=== PATIENT | female | born 1960 | race Two or more races ===

== ENCOUNTER 2018-05-02 19:39 | Inpatient (IN) | payer MEDICAID ==
--- NOTE | 2018-05-02 19:54 | EDPHY ---
HPI/HX/ROS/PE/MDM Narrative: CHIEF COMPLAINT: Chest pain HISTORY OF PRESENT ILLNESS: The patient is a 57 y/o female with a history of diabetes, hypertension, cholecystectomy arriving via EMS complaining of left-sided chest pain starting from her back and radiating to the front. When this pain started she broke out into a sweat and felt like her stomach was moving around. While en route to the emergency department she was given 4 baby Aspirin and Zofran. She felt like she was having heart palpitations as well. In addition to her chest pain she also is feeling short of breath, weak, dizzy, and was vomiting. Currently she is feeling a pressure in her chest and nausea. No fever, chills, diarrhea, urinary complaints, headache, lightheadedness. A thread drawer was present while talking with the patient. REVIEW OF SYSTEMS: Aside from elements discussed in the HPI, a comprehensive 10 system review of systems was reviewed and is negative. PAST MEDICAL HISTORY: Diabetes, hypertension, sleep apnea, cholecystectomy SOCIAL HISTORY: Lives in [place], employed at [employer] VITAL SIGNS: Reviewed by me GENERAL: Overweight individual, anxious, appears uncomfortable. HEENT: Atraumatic. Eyes: No icterus, no injection. Mouth: moist mucous membranes. No erythema or lesions. Neck: supple with no adenopathy. LUNGS: Clear to auscultation bilaterally, no wheezes, rhonchi or rales. CARDIAC: Tenderness to palpation across anterior chest; no subcutaneous emphysema palpated. Tenderness left greater than right. Irregular rate, no rubs , murmurs or gallops. ABDOMEN: Soft, nontender, nondistended, bowel sounds normal. BACK: No CVA tenderness. EXTREMITIES: No trauma. Trace pitting edema. Range of motion is normal throughout. NEURO: Alert and oriented, grossly nonfocal. SKIN: Warm and dry, no rash. PSYCHIATRIC: Normal mentation, no agitation. Portions of this note were transcribed by a medical claims processor. I personally performed a history, physical exam, medical decision making, and confirmed accuracy of information the transcribed note. ED Course: The patient is a 57 y/o female with a history of diabetes, hypertension, cholecystectomy arriving via EMS presenting with left-sided chest pain starting from her back and radiating to the front associated with vomiting, shortness of breath, and feeling weak. On exam she has tenderness across her anterior chest; left greater than right. She also has trace pitting edema. Chest x-ray, EKG, and labs ordered. 4mg IV Morphine, 1 nitroglycerin, and 500mL IV NS administered. 1944: 12-LEAD EKG: Please see the full report in Trace Master. My interpretation: Ectopic atrial rhythm with a rat of 61, T-wave inversion 1955: Patient's chest x-ray reveals mild cardiac enlargement. She does have an elevated d-dimer. Chest CTA ordered, however, the patient reports a significant allergy to IV contrast which resulted in a fainting episode when she had IV contrast at [facility]. We will premedicate the patient and attempt to obtain further information regarding this potential allergic reaction. 2045: The patient's pain has improved after Morphine. 2110: I consulted with the hospitalist service, Dr. Galarza accepts admission of this patient. 2129: Reassessed patient and discussed laboratory and imaging findings. I have also discussed the plan for admission, which she is comfortable with. 125mg IV Solu-Medrol and 25mg IV Benadryl administered so patient can have a CTA preformed as she states she is allergic to the IV contrast. 2155: Repeat 12-LEAD EKG: Please see the full report in Trace Master. My interpretation: Sinus bradycardia with a rte of 46, atrial premature complexes in couplets, LVH with secondary repolarization abnormality CT scan for pulmonary emboli pending at the time of this dictation. MDM: After history and physical examination, the differential for chest pain was considered, including but not limited to, myocardial ischemia, acute coronary syndrome, pulmonary embolus, chest wall pain, pleural inflammation, abdominal causes, and pulmonary infectious causes. - Data Points Imaging Results: Imaging Impressions Chest X-Ray 05/02/18 19:56 Impression: Moderate cardiac enlargement. Imaging: Discussed imaging studies w/ velvet weaver Radiologist, I viewed and interpreted images myself Laboratory Results: Laboratory Results 05/02/18 19:41 05/02/18 19:41 05/02/18 05/02/18 05/02/18 19:49 19:41 19:41 WBC RBC Hgb Hct MCV MCH MCHC RDW Plt Count MPV Neut % (Auto) Lymph % (Auto) Toole % (Auto) Eos % (Auto) Baso % (Auto) Nucleat RBC Rel Count Absolute Neuts (auto) Absolute Lymphs (auto) Absolute Monos (auto) Absolute Eos (auto) Absolute Basos (auto) Absolute Nucleated RBC Immature Gran % Immature Gran # D-Dimer 2.02 ug/mLFEU H ug/mLFEU (0.00-0.50) Sodium 139 mEq/L mEq/L (135-145) Potassium 3.8 mEq/L mEq/L (3.3-5.0) Chloride 98 mEq/L mEq/L (97-110) Carbon Dioxide 25 mEq/l mEq/l (22-31) Anion Gap 16 mEq/L mEq/L (8-16) BUN 19 mg/dL mg/dL (7-23) Creatinine 0.9 mg/dL mg/dL (0.6-1.0) Estimated GFR > 60 Glucose 124 mg/dL H mg/dL (70-100) Calcium 10.4 mg/dL mg/dL (8.5-10.4) Total Bilirubin 0.5 mg/dL mg/dL (0.1-1.4) Conjugated Bilirubin 0.2 mg/dL mg/dL (0.0-0.5) Unconjugated Bilirubin 0.3 mg/dL mg/dL (0.0-1.1) AST 35 IU/L IU/L (14-46) ALT 44 IU/L IU/L (9-52) Alkaline Phosphatase 146 IU/L H IU/L (38-126) Creatine Kinase 183 IU/L H IU/L (0-156) CK-MB (CK-2) Fraction 2.53 ng/mL ng/mL (0.00-4.55) CK-MB (CK-2) % 1.4 % % (0.0-4.0) Creatine Kinase Interp NEGATIVE (NEGATIVE) POC Troponin I 0.00 ng/mL ng/mL (0.00-0.08) Troponin I 0.023 ng/mL ng/mL (0.000-0.034) Total Protein 8.2 g/dL g/dL (6.3-8.2) Albumin 5.0 g/dL g/dL (3.5-5.0) Lipase 164 IU/L IU/L (23-300) 05/02/18 19:41 WBC 13.96 10^3/uL H 10^3/uL (3.80-9.50) RBC 4.93 10^6/uL 10^6/uL (4.18-5.33) Hgb 14.5 g/dL g/dL (12.6-16.3) Hct 43.3 % % (38.0-47.0) MCV 87.8 fL fL (81.5-99.8) MCH 29.4 pg pg (27.9-34.1) MCHC 33.5 g/dL g/dL (32.4-36.7) RDW 13.8 % % (11.5-15.2) Plt Count 238 10^3/uL 10^3/uL (150-400) MPV 8.4 fL L fL (8.7-11.7) Neut % (Auto) 73.5 % % (39.3-74.2) Lymph % (Auto) 20.9 % % (15.0-45.0) Toole % (Auto) 4.1 % L % (4.5-13.0) Eos % (Auto) 0.8 % % (0.6-7.6) Baso % (Auto) 0.3 % % (0.3-1.7) Nucleat RBC Rel Count 0.0 % % (0.0-0.2) Absolute Neuts (auto) 10.26 10^3/uL H 10^3/uL (1.70-6.50) Absolute Lymphs (auto) 2.92 10^3/uL 10^3/uL (1.00-3.00) Absolute Monos (auto) 0.57 10^3/uL 10^3/uL (0.30-0.80) Absolute Eos (auto) 0.11 10^3/uL 10^3/uL (0.03-0.40) Absolute Basos (auto) 0.04 10^3/uL 10^3/uL (0.02-0.10) Absolute Nucleated RBC 0.00 10^3/uL 10^3/uL (0-0.01) Immature Gran % 0.4 % % (0.0-1.1) Immature Gran # 0.06 10^3/uL 10^3/uL (0.00-0.10) D-Dimer Sodium Potassium Chloride Carbon Dioxide Anion Gap BUN Creatinine Estimated GFR Glucose Calcium Total Bilirubin Conjugated Bilirubin Unconjugated Bilirubin AST ALT Alkaline Phosphatase Creatine Kinase CK-MB (CK-2) Fraction CK-MB (CK-2) % Creatine Kinase Interp POC Troponin I Troponin I Total Protein Albumin Lipase Medications Given: Nitroglycerin (Nitrostat) 0.4 mg SL EDNOW PRN PRN Reason: Chest Pain Last Admin: 05/02/18 21:16 Dose: 0.4 mg Discontinued Medications Diphenhydramine HCl (Benadryl Injection) 25 mg IVP EDNOW ONE Stop: 05/02/18 21:22 Last Admin: 05/02/18 22:05 Dose: 25 mg Sodium Chloride (Ns) 500 mls @ 0 mls/hr IV ONCE ONE PRN Reason: Wide Open Stop: 05/02/18 20:10 Last Admin: 05/02/18 20:10 Dose: 500 mls Methylprednisolone Sodium Succinate (Solu-Medrol) 125 mg IVP EDNOW ONE Stop: 05/02/18 21:22 Last Admin: 05/02/18 22:05 Dose: 125 mg Morphine Sulfate (Morphine) 4 mg IVP EDNOW ONE Stop: 05/02/18 20:09 Last Admin: 05/02/18 20:10 Dose: 4 mg Point of Care Test Results: Chemistry 05/02/18 19:49 POC Troponin I 0.00 ng/mL ng/mL (0.00-0.08) General Time Seen by Provider: 05/02/18 19:49 Initial Vital Signs: Initial Vital Signs Temperature (C) 36.4 C 05/02/18 19:45 Heart Rate 61 05/02/18 19:45 Respiratory Rate 18 05/02/18 19:45 Blood Pressure 133/86 H 05/02/18 19:45 O2 Sat (%) 93 05/02/18 19:45 O2 Delivery Mode Nasal Cannula O2 (L/minute) 2 Allergies/Adverse Reactions: No Known Allergies Allergy (Unverified 05/02/18 19:48) Home Medications: Medication Instructions Recorded Lisinopril 05/02/18 Departure - Departure Disposition: [facility] Acute Clinical Impression: D-dimer, elevated, Shortness of breath Chest pain Qualifiers: Chest pain type: other chest pain Qualified Code(s): R07.89 - Other chest pain Condition: Fair Report Scribed for: Niurka Pan Report Scribed by: Nelida Rojas Date of Report: 05/02/18 Time of Report: 20:04
[2018-05-02 20:09] LABS: PLATELET COUNT 238 10^3/uL (150-400)
[2018-05-02] MEDS ORDERED: NS 500 ML IV ONE (20:09)
[2018-05-02 20:15] LABS: CREATINE KINASE 183 IU/L (0-156)
[2018-05-02] MEDS: NITROGLYCERIN 0.4 MG BTL SL PRN ×2 (20:28→21:16)
[2018-05-02] MEDS ORDERED: IOPAMIDOL (ISOVUE 370) 100 ML BTL IV ONE (20:50)
[2018-05-02] MEDS ORDERED: methylPREDNISolone SOD SUCC 125 MG/2 ML VIAL IVP ONE (21:21)
[2018-05-02] MEDS ORDERED: ONDANSETRON DISINTEGRATING 4 MG TAB PO PRN (22:36)
[2018-05-02] MEDS ORDERED: ACETAMINOPHEN 325 MG TAB PO PRN (22:36)
[2018-05-02] MEDS ORDERED: ONDANSETRON 4 MG/2 ML VIAL IVP PRN (22:36)
[2018-05-02] MEDS ORDERED: D50W 25 GM/50 ML VIAL IVP PRN (22:38)
--- NOTE | 2018-05-03 00:02 | CPEKG ---
Test Reason : OPEN Blood Pressure : / mmHG Vent. Rate : 061 BPM Atrial Rate : 061 BPM P-R Int : 117 ms QRS Dur : 087 ms QT Int : 414 ms P-R-T Axes : 000 -08 202 degrees QTc Int : 417 ms Atrial vs junctional rhythm LVH with secondary repolarization abnormality Confirmed by Niurka Pan ([id number]) on 05/03/2018 12:02:12 AM Referred By: Confirmed By:Niurka Pan
--- NOTE | 2018-05-03 00:04 | CPEKG ---
Test Reason : OPEN Blood Pressure : / mmHG Vent. Rate : 046 BPM Atrial Rate : 067 BPM P-R Int : 162 ms QRS Dur : 092 ms QT Int : 507 ms P-R-T Axes : 009 -11 -38 degrees QTc Int : 444 ms Sinus bradycardia Atrial premature complexes in couplets LVH with secondary repolarization abnormality Confirmed by Niurka Pan ([id number]) on 05/03/2018 12:04:13 AM Referred By: Confirmed By:Niurka Pan
--- NOTE | 2018-05-03 01:14 | PDGENHP ---
History and Physical - Chief Complaint Chest pain - History of Present Illness 57 yo F w/ DM and HTN presents after episode of chest pain. Patient was eating today when she developed chest pain on her left side radiation to her back. She also felt dizzy and nauseous. She vomited and then had syncopal episode. After this she felt cold, short of breath, and continued to have chest pain. She then came to the ED for evaluation. She has no prior history of coronary disease but she does have DM and HTN. She tells me that sometimes when she drinks coffee she feels burning down the middle of her chest. At the time of my evaluation patient is feeling improved with only mild discomfort. In the ED her troponin was negative. Her ECG reveals relative bradycardia with diffuse TWI's. Her D-dimer was elevated. Case discussed with ED physician Dr. Pan; records reviewed in EMR. History Information - Allergies/Home Medication List Allergies/Adverse Reactions: No Known Allergies Allergy (Unverified 05/02/18 19:48) Home Medications: Lisinopril 05/02/18 [Last Taken Unknown] I have personally reviewed and updated: family history, medical history - Past Medical History diabetes type 2, hypertension - Surgical History Reports: cholecystectomy - Family History Additional family history: Healthy adult son in the room - Social History Smoking Status: Never smoked Review of Systems Review of Systems: ROS: 10pt was reviewed & negative except for what was stated in HPI & below Physical Exam Physical Exam: Temp Pulse Resp BP Pulse Ox 36.9 C 65 20 135/77 H 96 05/02/18 23:13 05/02/18 23:13 05/02/18 23:13 05/02/18 23:13 05/02/18 23:13 O2 (L/minute) 2 Constitutional: appears nourished, uncomfortable Eyes: PERRL, EOMI Ears, Nose, Mouth, Throat: moist mucous membranes, no oral mucosal ulcers Cardiovascular: regular rate and rhythym, no murmur, rub, or gallop, other ( Chest wall tenderness upon palpation of L chest) Respiratory: no respiratory distress, clear to auscultation Gastrointestinal: normoactive bowel sounds, soft, non-tender abdomen Skin: warm, normal color Musculoskeletal: full muscle strength, no muscle tenderness Neurologic: AAOx3, CN II-XII Intact Psychiatric: interacting appropriately, not anxious Lab Data & Imaging Review 05/02/18 19:41 05/02/18 19:41 WBC 13.96 10^3/uL (3.80-9.50) H 05/02/18 19:41 RBC 4.93 10^6/uL (4.18-5.33) 05/02/18 19:41 Hgb 14.5 g/dL (12.6-16.3) 05/02/18 19:41 Hct 43.3 % (38.0-47.0) 05/02/18 19:41 MCV 87.8 fL (81.5-99.8) 05/02/18 19:41 MCH 29.4 pg (27.9-34.1) 05/02/18 19:41 MCHC 33.5 g/dL (32.4-36.7) 05/02/18 19:41 RDW 13.8 % (11.5-15.2) 05/02/18 19:41 Plt Count 238 10^3/uL (150-400) 05/02/18 19:41 MPV 8.4 fL (8.7-11.7) L 05/02/18 19:41 Neut % (Auto) 73.5 % (39.3-74.2) 05/02/18 19:41 Lymph % (Auto) 20.9 % (15.0-45.0) 05/02/18 19:41 [place] % (Auto) 4.1 % (4.5-13.0) L 05/02/18 19:41 Eos % (Auto) 0.8 % (0.6-7.6) 05/02/18 19:41 Baso % (Auto) 0.3 % (0.3-1.7) 05/02/18 19:41 Nucleat RBC Rel Count 0.0 % (0.0-0.2) 05/02/18 19:41 Absolute Neuts (auto) 10.26 10^3/uL (1.70-6.50) H 05/02/18 19:41 Absolute Lymphs (auto) 2.92 10^3/uL (1.00-3.00) 05/02/18 19:41 Absolute Monos (auto) 0.57 10^3/uL (0.30-0.80) 05/02/18 19:41 Absolute Eos (auto) 0.11 10^3/uL (0.03-0.40) 05/02/18 19:41 Absolute Basos (auto) 0.04 10^3/uL (0.02-0.10) 05/02/18 19:41 Absolute Nucleated RBC 0.00 10^3/uL (0-0.01) 05/02/18 19:41 Immature Gran % 0.4 % (0.0-1.1) 05/02/18 19:41 Immature Gran # 0.06 10^3/uL (0.00-0.10) 05/02/18 19:41 D-Dimer 2.02 ug/mLFEU (0.00-0.50) H 05/02/18 19:41 Sodium 139 mEq/L (135-145) 05/02/18 19:41 Potassium 3.8 mEq/L (3.3-5.0) 05/02/18 19:41 Chloride 98 mEq/L (97-110) 05/02/18 19:41 Carbon Dioxide 25 mEq/l (22-31) 05/02/18 19:41 Anion Gap 16 mEq/L (8-16) 05/02/18 19:41 BUN 19 mg/dL (7-23) 05/02/18 19:41 Creatinine 0.9 mg/dL (0.6-1.0) 05/02/18 19:41 Estimated GFR > 60 05/02/18 19:41 Glucose 124 mg/dL (70-100) H 05/02/18 19:41 Calcium 10.4 mg/dL (8.5-10.4) 05/02/18 19:41 Total Bilirubin 0.5 mg/dL (0.1-1.4) 05/02/18 19:41 Conjugated Bilirubin 0.2 mg/dL (0.0-0.5) 05/02/18 19:41 Unconjugated Bilirubin 0.3 mg/dL (0.0-1.1) 05/02/18 19:41 AST 35 IU/L (14-46) 05/02/18 19:41 ALT 44 IU/L (9-52) 05/02/18 19:41 Alkaline Phosphatase 146 IU/L (38-126) H 05/02/18 19:41 Creatine Kinase 183 IU/L (0-156) H 05/02/18 19:41 CK-MB (CK-2) Fraction 2.53 ng/mL (0.00-4.55) 05/02/18 19:41 CK-MB (CK-2) % 1.4 % (0.0-4.0) 05/02/18 19:41 Creatine Kinase Interp NEGATIVE (NEGATIVE) 05/02/18 19:41 POC Troponin I 0.00 ng/mL (0.00-0.08) 05/02/18 19:49 Troponin I 0.023 ng/mL (0.000-0.034) 05/02/18 19:41 Total Protein 8.2 g/dL (6.3-8.2) 05/02/18 19:41 Albumin 5.0 g/dL (3.5-5.0) 05/02/18 19:41 Lipase 164 IU/L (23-300) 05/02/18 19:41 Imaging Review: Imaging Impressions Chest X-Ray 05/02/18 19:56 Impression: Moderate cardiac enlargement. Chest/Thorax CTA 05/02/18 20:40 Impression: Negative CT examination of the chest for acute pulmonary thromboembolic disease. Results called to Dr. Payton Quiles at midnight at the time of the interpretation. Visualized and Interpreted EKG results: Yes EKG Interpretation: Positive for: other (HR 46, Diffuse TWI's) Assessment & Plan Assessment: 57 yo F w/ DM and HTN presents after episode of chest pain. Plan: 1. Chest pain - Pain developed while eating, radiated to back, and was associated with dizziness, SOB, and vomiting. Pain is pleuritic and somewhat reproducible on my exam. D-dimer was elevated but CTA negative for PE, pneumothorax, or dissection. ECG (personally interpreted) notable for diffuse T wave inversions without prior available for comparison. HEART score of 5 indicating need for further observation. She does have a small hiatal hernia on imaging but it seems unlikely this would produce such dramatic symptoms. - Admit to PCU for observation - Monitor on telemetry, trend cardiac enzymes - Proceed per chest pain protocol pending above 2. Syncope - I suspect vasovagal etiology noting severe pain and nausea/ vomiting. It is unclear whether there was true LOC. CTA negative for PE. - ACS work-up as above - Will also obtain TTE noting cardiomegaly on CXR and abnormal ECG 3. NIDDM - On metformin only as outpatient. - Will manage with insulin lispro standard SSI while inpatient - Monitor BG ACHS, D50 PRN for hypoglycemia 4. HTN - Continue home medications pending reconciliation Diet - NPO @ MN Code - Full Ppx - LMWH Dispo - Admit under observation status
[2018-05-03 04:10] LABS: PLATELET COUNT 215 10^3/uL (150-400)
[2018-05-03] MEDS ORDERED: ENOXAPARIN 40 MG/0.4 ML SYR SC SCH (09:00)
[2018-05-03] MEDS ORDERED: PNEUMOCOCCAL 0.5ML VACCINE VIAL IM ONE (11:25)
[2018-05-03] MEDS: ENOXAPARIN 40 MG/0.4 ML SYR SC SCH ×2 (11:33→21:57)
[2018-05-03] MEDS: INSULIN LISPRO 100 UNIT/ML SC SCH ×3 (11:33→16:35)
--- NOTE | 2018-05-03 16:10 | ECHO ---
[email or web address] [address] [address] Main: [phone] Fax: Transthoracic Echocardiogram Name: TK ESCALANTE MR#: [id number] Study Date: 05/03/2018 Study Time: 01:05 PM Date of : 1960 Age: 57 year(s) Height: 162.6 cm (64 in.) Weight: 108.86 kg (240 lb.) BSA: 2.11 m2 Gender: Female Examination: Echo Indication: Shortness of breath, Chest Pain Image Quality: Contrast: Requested by: Jose Bailon BP: 142 mmHg/72 mmHg Heart Rate: Rhythm: Normal sinus rhythm with ectopy Indication: Shortness of breath, Chest Pain Procedure Staff Pattern Designer: Pete Sotelo RDCS Reading Physician: Patrice Martinez MD Requesting Provider: Conclusions: Mild concentric LV hypertrophy. Normal global systolic LV function. Diastolic dysfunction is present. . Measurements: Chambers Valvular Assessment AV/MV Valvular Assessment TV/PV Normal Normal Normal Name Value Range Name Value Range Name Value Range Ao Alma (MM): 3.2 cm (2.2 cm-3.7 AV Vmax: 1.64 m/s (1 m/s-1.7 TR Vmax: 2.92 mm/s ( - ) cm) m/s) TR PGmax: 34 mmHg ( - ) IVSd (2D): 1.2 cm (0.6 cm-1.1 AV maxP mmHg ( - ) syst. PAP: 39 mmHg ( - ) cm) LVOT Vmax: 0.94 m/s (0.7 m/s-1.1 LVDd (2D): 4.9 cm (3.9 cm-5.3 m/s) cm) MV E Vmax: 0.55 m/s ( - ) LVDs (2D): 3.2 cm (2.1 cm-4 MV A Vmax: 0.40 m/s ( - ) cm) MV E/A: 1.38 ( - ) LVPWd (2D): 1.4 cm ( - ) LVEF (2D): 64 (>=54 %) Continued Measurements: Chambers Valvular Assessment AV/MV Valvular Assessment TV/PV Name Value Name Value Name Value LADs Lon.6 cm MV E' Septal: 0.07 m/s CVP (est.): 5 mmHg LA Area: 14.7 cm2 MV E/E' Septal: 8.40 MV E/E' Lateral: 10.00 Findings: Left Ventricle: Patient: TK ESCALANTE Study Date: 05/03/2018 Page 1 of 2 01:05 PM Normal size left ventricle. Mild concentric LV hypertrophy. Normal global systolic LV function. EF is 64 %. No regional wall motion abnormality. Diastolic dysfunction is present. . Right Ventricle: Normal size right ventricle. Normal RV function. Left Atrium: The left atrium is normal in size. Right Atrium: The right atrium is normal in size. Mitral Valve: The mitral valve is normal in appearance and function. There is no mitral valve regurgitation. Aortic Valve: The aortic valve is tri-leaflet. The aortic valve is normal in appearance and function. Tricuspid Valve: Mild tricuspid regurgitation is present. The pulmonary artery pressure is mildly increased. Pulmonic Valve: The pulmonic valve is normal in appearance and function. Aorta: The aorta is normal. Pericardium: No pericardial effusion. There is pericardial fat. (No Signature Object) Patient: TK ESCALANTE Study Date: 05/03/2018 Page 2 of 2 01:05 PM [id number]
--- NOTE | 2018-05-03 16:20 | HOSPPROG ---
Hospitalist Progress Note Assessment/Plan: Subjective Follow-up on chest pain. Patient states that she is having left lower extremity discomfort she notes pain around her left buttock region. She also states that she has been having intermittent swelling particularly of the left lower extremity. I reviewed her case with Cardiology as we were discussing an exercise stress test. She at baseline however has T-wave inversions on her ECG so we ultimately decided to defer for now and pursue nuclear medicine stress testing. Patient was seen on rounds with air operations manager. Objective Vitals as detailed below Exam General-patient appeared comfortable awake alert conversant no acute distress Heart-regular rate and rhythm no murmurs appreciated Lungs-Clear to auscultation with normal respiratory effort Abdomen-soft nontender nondistended -no Payne catheter in place Extremities-trace edema bilaterally possibly slightly worse on left as compared to right. No calf pain with palpation Labs as detailed below Assessment and plan Chest pain-patient which recurrent left-sided chest pain over the prior weeks. She has associated with hypoglycemia. Troponins are negative overnight but considering her risk factors I recommend further evaluation with stress testing. Her baseline ECG changes show T-wave inversions so nuclear medicine stress testing was recommended. Positive leukocyte Estrace-no urinary complaints. Will follow for now. Hypoxia-possibly obstructive sleep apnea. Wean oxygen as able. Hypertension-continue lisinopril and amlodipine and hydrochlorothiazide. Diabetes mellitus type 2-continue metformin. DVT prophylaxis-Lovenox. Disposition-pending nuclear medicine stress testing. Objective: Vital Signs Temp Pulse Resp BP Pulse Ox 36.9 C 49 L 14 142/71 H 93 05/03/18 15:43 05/03/18 15:43 05/03/18 15:43 05/03/18 15:43 05/03/18 15:43 Laboratory Results 05/03/18 03:48 05/03/18 03:48 05/02/18 05/03/18 05/04/18 05:59 05:59 05:59 Intake Total 500 Output Total 300 300 Balance 200 -300 ICD10 Worksheet Patient Problems: Problems Problem Status Onset Chest pain Acute D-dimer, elevated Acute Shortness of breath Acute
--- NOTE | 2018-05-03 17:04 | ASMTCMCOM ---
CM Note CM Note Notes: Pt in for chest pain, arm pain. Pt may need stress test. Pt resides in [place] with son and works at [employer]. Pt understand Thai and primary language is Ivorian. PT rec home vs HHC depending on progress. D/c plan of care: Home independent or HHC Date Signed: 05/03/2018 05:04 PM Electronically Signed By:BENITO Oakley
[2018-05-03] MEDS ORDERED: metFORMIN HCL 500 MG TAB PO SCH (18:00)
[2018-05-04] MEDS: INSULIN LISPRO 100 UNIT/ML SC SCH ×3 (08:37→17:44)
[2018-05-04] MEDS: amLODIPine BESYLATE 5 MG TAB PO SCH (08:44)
[2018-05-04] MEDS: HYDROCHLOROTHIAZIDE 25 MG TAB PO SCH (08:44)
[2018-05-04] MEDS: ENOXAPARIN 40 MG/0.4 ML SYR SC SCH ×2 (08:45→20:57)
--- NOTE | 2018-05-04 10:10 | PDMN ---
Medical Necessity Medical necessity: [facility] [place] M89 CP: 57 y/o w/ CP associated w/ dizziness, n/v, SOB, elevated Ddimer, Twave inversions noted, cardiology consult, during course of hospitalization pt c/o lower extremity pain and swelling, hypoxia - started on O2, nuc med stress test pending, hx DM, HTN. Change to IP status per MD order @ 1722 considering pt risk factors it is recommended further eval w/ stress testing.
[2018-05-04] MEDS: PANTOPRAZOLE SODIUM 40 MG TAB PO SCH (12:48)
--- NOTE | 2018-05-04 14:48 | HOSPPROG ---
Hospitalist Progress Note Assessment/Plan: Subjective Follow-up on chest discomfort. Patient describes a burning sensation in the region of her esophagus which she states she has noted when she is drinking coffee over the prior weeks. We discussed that this may be related to acid reflux which could actually be the source of her chest discomfort. We did review her imaging studies with her as she there was evidence of a mild hiatal hernia on chest imaging. We discussed a trial of proton pump inhibitors and she seemed agreeable to this. We also reviewed her left buttock and leg discomfort. It sounds like she had a fall few weeks ago and noticed a hematoma and left buttock region. She also today complains of left ankle pain. We discussed that we would check a x-ray to ensure there is no fracture evident. Otherwise we reviewed the plan for Lexiscan stress testing tomorrow for further assessment in light of her multiple cardiac risk factors. I did give her the option to discharge home today and do outpatient stress testing however she prefers to go ahead and proceed as planned with the stress testing tomorrow. Objective Vitals as detailed below Exam General-patient appeared comfortable awake alert conversant no acute distress Heart-regular rate and rhythm no murmurs appreciated Lungs-Clear to auscultation with normal respiratory effort Abdomen-soft nontender nondistended -no Payne catheter in place Extremities-no significant pitting edema Skin-no erythema or swelling or ecchymoses in the left upper thigh or buttock Labs as detailed below Assessment and plan Chest pain-patient which recurrent left-sided chest pain over the prior weeks. This may be secondary to esophageal reflux as she does describe a burning sensation along her esophagus. I have started Protonix. Her troponins have been negative. Her baseline ECG changes show T-wave inversions so nuclear medicine stress testing was recommended instead of exercise stress testing. I have ordered a Lexiscan as her mobility is questionable. Left leg pain-she localizes a lump in her left upper thigh and left buttock region. I evaluated this area today and did not see any significant ecchymoses or masses. She did show me a picture from a few weeks ago when she 1st had fallen and there was a lot more ecchymoses noted so I suspect she likely has a hematoma that she is feeling. We discussed physical therapy today and gave the patient the option of outpatient physical therapy versus home physical therapy and she would prefer to do outpatient physical therapy so I have written a paper prescription for this and placed it in her paper chart to provide to her at the time of discharge. Left ankle pain-this developed after her recent fall a few weeks ago. I will check x-rays today and that she does have some localizing pain in the ankle. Hypoxia-probable obstructive sleep apnea. She may have some element of obesity hypoventilation syndrome as well. She states she does have oxygen prescribed to use at nighttime only and typically then does not use it during the daytime. Wean during the daytime as able. Hypertension-continue lisinopril and amlodipine and hydrochlorothiazide. Diabetes mellitus type 2-continue metformin. DVT prophylaxis-Lovenox. Disposition-pending nuclear medicine stress testing. I think she can probably go home tomorrow for stress testing is negative and continue with a trial of proton pump inhibitor. Objective: Vital Signs Temp Pulse Resp BP Pulse Ox 36.6 C 49 L 14 124/59 H 95 05/04/18 11:43 05/04/18 11:43 05/04/18 11:43 05/04/18 11:43 05/04/18 11:43 05/03/18 05/04/18 05/05/18 05:59 05:59 05:59 Intake Total 1750 Output Total 900 Balance 850 ICD10 Worksheet Patient Problems: Problems Problem Status Onset Chest pain Acute D-dimer, elevated Acute Shortness of breath Acute
--- NOTE | 2018-05-04 16:37 | ASMTCMCOM ---
CM Note CM Note Notes: Reviewed chart, spoke with JOSE GUADALUPE Fregoso and Dr. Martines regarding discharge plan of care, pt's progress. Per PCU rounds, pt is scheduled for a stress test on Saturday05/05/18. Pt to likely discharge home on Saturday05/06/18. PT/OT recommend home with home care and a 4 wheel walker. Discussed possibility of home care with pt, with the assistance of the Digital Director. Pt declined, requesting outpt therapy. Pt provided with list of loan closet information. Pt's son to assist in finding a walker on Saturday05/05/18. Rx written for outpt therapy by Dr. Martines; Rx placed in chart for discharge. CM will continue to follow for any further needs or issues. Discharge Plan: Home independently with 4 wheel walker and outp therapy Date Signed: 05/04/2018 04:36 PM Electronically Signed By:Tammie Newell RN
[2018-05-05] MEDS ORDERED: REGADENOSON 0.4 MG/5 ML SYR IVP ONE (09:41)
[2018-05-05] MEDS: LISINOPRIL 40 MG TAB PO SCH (09:44)
[2018-05-05] MEDS: ENOXAPARIN 40 MG/0.4 ML SYR SC SCH (09:44)
[2018-05-05] MEDS: PANTOPRAZOLE SODIUM 40 MG TAB PO SCH (09:44)
[2018-05-05] MEDS: amLODIPine BESYLATE 5 MG TAB PO SCH (09:44)
[2018-05-05] MEDS: metFORMIN HCL 500 MG TAB PO SCH ×3 (09:44→18:23)
[2018-05-05] MEDS: HYDROCHLOROTHIAZIDE 25 MG TAB PO SCH (09:44)
[2018-05-05] MEDS: INSULIN LISPRO 100 UNIT/ML SC SCH ×3 (09:45→18:10)
[2018-05-05] MEDS ORDERED: METOPROLOL TARTRATE 5 MG/5 ML INJ ONE (11:46)
--- NOTE | 2018-05-05 11:48 | CPR ---
DATE OF PROCEDURE: 05/05/2018 PROCEDURE PERFORMED: Nuclear Lexiscan stress test. ORDERING PHYSICIAN: Hospitalist REASON FOR TEST: Chest pain. Resting EKG shows a sinus bradycardia with occasional PVCs. Blood pressure 138/86, heart rate 55, ox ygen saturation 89%. She is on 2 L of oxygen. She is asymptomatic prior to testing. STRESS PORTION: Lexiscan was injected rapidly, followed by saline flush. Cardiolite was then inject ed, followed by saline flush. After injection, her EKG did show V1 through V6 T-wave inversion. Blo od pressure with injection 152/100, oxygen saturation 99%, heart rate peaked at 78. RECOVERY: EKG did normalize with mild indication of T-wave inversion. Blood pressure 170/104, on re check 158/110. She did have noted PVCs in recovery. Her only complaint was that she felt tired and her head was spinning. Recheck again showed blood pressure 152/112. Metoprolol 5 mg IV push was giv en. Blood pressure came down to 140/90. EKG showed a bradycardic rate of 45, T-wave inversion V4, V 5, V6. At this time, she has no complaints. She will proceed with scanning at this time. /[id number]/MODL
[2018-05-05] MEDS ORDERED: NITROGLYCERIN 0.4 MG BTL SL PRN (17:23)
[2018-05-05] MEDS ORDERED: TEMAZEPAM 15 MG CAP PO PRN (17:23)
--- NOTE | 2018-05-05 18:50 | GCON ---
DATE OF CONSULTATION: 05/05/2018 We were asked by the hospitalist to consult due to chest pain and positive nuclear stress test. This is a 57-year-old female with history of hypertension and diabetes mellitus managed on insulin. She presented to the emergency department with complaints of chest pain. She described the chest link n originating on the left side and radiating around to the back. At times she has noted dizziness an d nausea with episodes. Prior to coming into the hospital she vomited and then had a syncopal episod e. She has no prior history of known coronary artery disease. She tells me her mother did of a heart attack. At time of my visit, she is comfortable with no chest pain. However, she has noted na usea. ALLERGIES: She has no known allergies. MEDICATIONS: She is on lisinopril 40 mg daily, metformin 500 mg three times daily, hydrochlorothiazi de 25 mg daily, amlodipine 5 mg daily. These are her home medications. PAST HISTORY: Diabetes mellitus and hypertension. FAMILY HISTORY: Coronary artery disease. REVIEW OF SYSTEM: 10-point review of system was negative except for that listed in the HPI. PHYSICAL EXAMINATION: VITAL SIGNS: Blood pressure: 141/80, heart rate 48, oxygen saturation 91% on room air, temperature 36.7. EKG today is sinus bradycardia. CONSTITUTIONAL: She is in no distress. Eyes PERRLA. CARDIOVASCULAR: Regular heart rate and rhythm. No murmurs, rubs, or gallops noted. RESPIRATORY: Lungs are clear to auscultation. No wheezes, rales, or rhonchi. GASTROINTESTINAL: Patrica l sounds in all 4 quadrants. ABDOMEN: Soft and nontender. SKIN: Warm and dry. MUSCULOSKELETAL: F ull muscle strength with no tenderness. NEUROLOGIC: She is alert and oriented x3. PSYCHIATRIC: She interacts appropriately. IMAGING: Chest x-ray done on 05/02/2018, showed moderate cardiac enlargement. The chest CTA on 02/2018, showed no pulmonary thromboembolic disease. On 05/05/2018, nuclear perfusion stress test romeo wed: 1. Reversible ischemia involving the inferior lateral wall toward the apex. 2. Contractility and left ventricular ejection fraction could not be assessed due to arrhythmia. IMPRESSION AND PLAN: Chest pain has been present at home starting on the left side and radiating to the back. She has noted shortness of breath and dizziness at times with the nucleolar stress test po sitive for ischemia. It is recommended to proceed with cardiac angiogram with possible percutaneous intervention. This was discussed with she and her son. A before school was present and instru mental in the conversation. She has a good understanding of the upcoming test and is in agreement to proceed. At this time, cardiac angiogram is planned for tomorrow, May 06, 2018, at 11 o'clock in the [facility]. At this time, she has no other questions. She is alert, oriented, and understands the upcomin g procedure. /[id number]/MODL
--- NOTE | 2018-05-05 20:52 | HOSPPROG ---
Hospitalist Progress Note Assessment/Plan: * Chest pain - positive stress test -to cardiac cath in am * Morbid obesity BMI 41 * RUSS - O2 at night * Daytime hypoxia - suspect element of obesity hypoventilation -CTA chest negative for PE * DM -hold metformin * HTN -lisinopril, amlodipine, HCTZ * Diarrhea - no recurrence after stress test Subjective: No new complaints Objective: Vital Signs Temp Pulse Resp BP Pulse Ox 36.5 C 56 L 14 139/71 H 97 05/05/18 20:03 05/05/18 20:03 05/05/18 20:03 05/05/18 20:03 05/05/18 20:03 05/04/18 05/05/18 05/06/18 05:59 05:59 05:59 Intake Total 1750 500 340 Output Total 900 Balance 850 500 340 d/w Pattie Miranda cardiology regarding positive stress test Laboratory Tests 05/02/18 05/03/18 19:41 03:48 D-Dimer 2.02 H Creatinine 0.8 CTA chest - no PE EKG reviewed my personal interpretation is - TWI, may be due to LVH with strain - Physical Exam Constitutional: no apparent distress, appears nourished, not in pain Cardiovascular: regular rate and rhythym, no murmur, rub, or gallop Respiratory: no respiratory distress, no rales or rhonchi, clear to auscultation Gastrointestinal: normoactive bowel sounds, soft, non-tender abdomen, no palpable masses Skin: no rashes or abrasions, no fluctuance, no induration Neurologic: AAOx3, sensation intact bilaterally Psychiatric: interacting appropriately, not anxious, not encephalopathic, thought process linear ICD10 Worksheet Patient Problems: Problems Problem Status Onset Chest pain Acute D-dimer, elevated Acute Shortness of breath Acute
[2018-05-06 05:17] LABS: PLATELET COUNT 178 10^3/uL (150-400)
[2018-05-06 05:24] LABS: INR 1.08 (0.83-1.16); PROTIME(PATIENT) 14.2 SEC (12.0-15.0)
[2018-05-06] MEDS ORDERED: DIAZEPAM 5 MG TAB PO ONE (06:00)
[2018-05-06] MEDS ORDERED: ASPIRIN EC 325 MG TAB PO ONE ×3 (06:00→10:27)
[2018-05-06] MEDS ORDERED: diphenhydrAMINE 25 MG CAP PO ONE ×2 (06:00→10:21)
[2018-05-06] MEDS ORDERED: NS 1,000 ML IV ONE (06:00)
[2018-05-06] MEDS ORDERED: FAMOTIDINE 20 MG TAB PO ONE (06:00)
[2018-05-06] MEDS ORDERED: LIDOCAINE 1% 300 MG/30 ML SDV ONE (07:53)
[2018-05-06] MEDS ORDERED: MIDAZOLAM 2 MG/2 ML VIAL ONE (07:54)
[2018-05-06] MEDS ORDERED: IOPAMIDOL (ISOVUE-370) 150 ML BTL IV ONE (07:54)
[2018-05-06] MEDS ORDERED: fentaNYL 100 MCG/2 ML INJ ONE (07:54)
[2018-05-06] MEDS: INSULIN LISPRO 100 UNIT/ML SC SCH ×3 (08:56→18:21)
[2018-05-06] MEDS: HYDROCHLOROTHIAZIDE 25 MG TAB PO SCH (09:13)
[2018-05-06] MEDS: amLODIPine BESYLATE 5 MG TAB PO SCH (09:13)
[2018-05-06] MEDS: LISINOPRIL 40 MG TAB PO SCH (09:13)
[2018-05-06] MEDS ORDERED: methylPREDNISolone SOD SUCC 125 MG/2 ML VIAL ONE (10:20)
[2018-05-06] MEDS ORDERED: FAMOTIDINE 20 MG/NACL/50 ML BAG IV ONE (10:21)
[2018-05-06] MEDS ORDERED: DIAZEPAM 5 MG TAB ONE (10:22)
[2018-05-06] MEDS ORDERED: VERAPAMIL 5 MG/2 ML VIAL ONE (10:43)
[2018-05-06] MEDS ORDERED: HEPARIN 10,000 UNIT/10 ML MDV (1,000 UNIT/ML) ONE (10:43)
[2018-05-06] MEDS ORDERED: FAMOTIDINE 20 MG/NACL 50 ML IV ONE (10:45)
[2018-05-06] MEDS ORDERED: methylPREDNISolone SOD SUCC 125 MG/2 ML VIAL IVP ONE (10:45)
--- NOTE | 2018-05-06 11:15 | PDHPUP ---
History & Physical Update H&P update statement: This history and physical update is based on an assessment of the patient which was completed after admission or registration (within 24 hours), but prior to the surgery/procedure. H&P update: H&P reviewed & patient examined, no change in patient's condition since H&P completed
--- NOTE | 2018-05-06 11:15 | PDPROPOC ---
Sedation Plan of Care Sedation Plan of Care: vital signs stable, mental status noted, patient educated of risks, benefits, alternatives, patient can tolerate sedation ASA Classification: ASA 1 Planned drugs: fentanyl, midazolam Mallampati Score: Class 2 Mallampati Reference Image: Patient passed 3-3-2 rule?: Yes
[2018-05-06] MEDS ORDERED: ATROPINE SULFATE 1 MG/10 ML SYR IVP PRN (12:18)
--- NOTE | 2018-05-06 12:23 | PDDXCAT ---
Diagnostic Cath Note - . Date: 05/06/18 Solar Photovoltaic Electrician: Gael Indication: other (New onset resting chest discomfort with an associated intermediate risk stress myocardial perfusion imaging study.) - Procedure Access: right wrist Procedure: left heart catheterization, coronary angiography, left ventriculogram - Materials Left Heart Cath size: 5F Left Heart Cath materials: JL3.5, JR4.0, pigtail - Findings-Left Heart Catheterization LM: The left main coronary artery is a large caliber vessel. There is appropriate bifurcation into left anterior descending and circumflex systems. There is no significant angiographic disease noted. LAD: This is a large caliber vessel. There are 2 diagonal branches identified. There is a 30-40% lesion in the proximal segment. The remainder of the coronary tree demonstrates luminal irregularities only. LCX: This is a diminutive vessel in the proximal segment. There is a very large bifurcating obtuse marginal branch identified. Again, luminal irregularities are noted with no obstructive lesions. RCA: Dominant vessel. There is a small PDA and a small posterolateral cascade. Luminal irregularities with no obstructive lesions are noted. EDP: 25 mmHg. LVEF: 55-60%. Wall motion: Homogeneous contractility of all cardiac segments. Complications: None. Estimated blood loss: <50ml Closure method: TR Band Assessment: Minimal, nonobstructive CAD with preserved left ventricular systolic function. Elevated end-diastolic pressure likely related to diastolic dysfunction and body habitus. Plan: Medical therapy. Intervention: None. Patient Problems: Problems Problem Status Onset Chest pain Acute D-dimer, elevated Acute Shortness of breath Acute
--- NOTE | 2018-05-06 15:38 | PDHOMEO2F ---
Home Oxygen Face to Face Home Orders: I certify that a physician or a nurse practitioner or physician's clinical project assistant has had a [id number] encounter with this patient on the date of this order due to the diagnosis listed, which relates to the primary reason the patient requires home oxygen. Alternative treatments have been tried, or considered, and deemed ineffective. It is anticipated that supplemental oxygen will result in improvement with treatment. Home oxygen qualifying diagnosis: obesity hypoventilation SpO2 on room air (%): 70 Frequency of home oxygen needed: continuous Home oxygen liters per minute: 2L daytime, 4L night time Home oxygen delivery device: mask, nasal cannula Concentrator: Yes E-tanks for mobility and back up: Yes If ordering portable O2, is the patient mobile in the home?: Yes I certify that, based on these findings, the home oxygen is medically necessary for this patient for the following length of time. Length of time home oxygen needed: 99 years
--- NOTE | 2018-05-06 15:40 | PDIAF ---
- Diagnosis Diagnosis: chest pain, resp failure Code Status: Full Code - Medication Management Discharge Medications: Medications to Continue on Transfer Lisinopril [Zestril 40 mg (*)] 40 mg PO DAILY 05/02/18 [Last Taken Unknown] Hydrochlorothiazide [HCTZ (*)] 25 mg PO DAILY 05/03/18 [Last Taken Unknown] amLODIPine BESYLATE [Norvasc 5 mg (*)] 5 mg PO DAILY 05/03/18 [Last Taken Unknown] metFORMIN HCL [Glucophage 500 mg (*)] 500 mg PO TIDMEAL 05/03/18 [Last Taken Unknown] Aspirin [Aspirin 81mg (*)] 81 mg PO DAILY #30 tab 05/06/18 [Last Taken Unknown] Atorvastatin Calcium [Lipitor 40 mg (*)] 40 mg PO DAILY #30 tab 05/06/18 [Last Taken Unknown] Pantoprazole Sodium [Protonix 40mg (*)] 40 mg PO DAILY #30 tab 05/06/18 [Last Taken Unknown] Discharge Medications: Refer to the Discharge Home Medication list for PRN reason. - Orders Services needed: Home Care, Registered Nurse, Physical Therapy, Occupational Therapy Home Care Face to Face: I certify that this patient was under my care and that I had the required [id number] encounter meeting the encounter requirements on the discharge day. My findings support the fact that the patient is homebound as defined in Home Care Face to Face Continued: CMS Chapter 7 Medicare Benefits Manual 30.1.1 , The condition of the patient is such that there exists a normal inability to leave home and consequently, leaving home would require a considerable and taxing effort. Diet Recommendation: no restrictions on diet Additional Instructions: Outpatient sleep study - we suspect severe sleep apnea - increase home oxygen to 4L at night until then, daytime 2L Hold metformin for 2 days after IV contrast - Follow Up Care Current Providers and Referrals: Patient,NotPresent [Unknown] - As per Instructions
[2018-05-06] MEDS ORDERED: PANTOPRAZOLE SODIUM 40 MG TAB PO SCH (15:45)
--- NOTE | 2018-05-06 16:06 | ASDISCHSUM ---
Discharge Information Plan Status:Home with No Needs Medically Cleared to Leave:05/06/2018 Discharge Date:05/06/2018 CM D/C Disposition:Home, Routine, Self-Care ADT D/C Disposition:Home Health Service Projected Discharge Date:05/06/2018 Transportation at D/C:Family Discharge Delay Reason: Follow-Up Date:05/06/2018 Discharge Slot: Final Diagnosis: Placement Information Patient Contact Information Contact Name:VANDANA Relationship:Son Address: Work Phone: City: [facility] Phone: State/Zip Code: Email: Financial Information Financial Class:Medicaid Primary Plan Desc:[employer] [place] Primary Plan Number:[id number] Secondary Plan Desc: Secondary Plan Number: Assessment Information LACE LACE Length of stay for Answers: 2 days current admission Acuity / Level of Answers: Yes Care: Did the patient have an inpatient admission? Comorbidities - select Answers: Diabetes (uncontrolled or all that apply controlled) Other Notes: HTN # of Emergency department Answers: 1-2 visits in the last 6 months Score: 8 Date Signed: 05/06/2018 04:04 PM Electronically Signed By:Katerina Hayward RN [facility] CM Progress Note CM Note CM Note Notes: Pt in for chest pain, arm pain. Pt may need stress test. Pt resides in [place] with son and works at [employer] Pt understand [place]ian and primary language is Anguillan. PT rec home vs HHC depending on progress. D/c plan of care: Home independent or HHC Date Signed: 05/03/2018 05:04 PM Electronically Signed By:BENITO Oakley [facility] Progress Note CM Note CM Note Notes: Reviewed chart, spoke with JOSE GUADALUPE Fregoso and Dr. Martines regarding discharge plan of care, pt's progress. Per PCU rounds, pt is scheduled for a stress test on Saturday05/05/18. Pt to likely discharge home on Saturday05/06/18. PT/OT recommend home with home care and a 4 wheel walker. Discussed possibility of home care with pt, with the assistance of the [employer] Pay[employer] Consultant. Pt declined, requesting outpt therapy. Pt provided with list of loan closet information. Pt's son to assist in finding a walker on Saturday05/05/18. Rx written for outpt therapy by Dr. Martines; Rx placed in chart for discharge. CM will continue to follow for any further needs or issues. Discharge Plan: Home independently with 4 wheel walker and outp therapy Date Signed: 05/04/2018 04:36 PM Electronically Signed By:Tammie Newell RN Case Management Discharge Plan Note Case Management Discharge Discharge Order Complete? Answers: Yes Patient to Obtain Answers: via Family Medications Transportation Arranged Answers: Family/Friends Family Notified Answers: Yes Notes: in room Discharge Comments Notes: 05/06/2018 Case Management Note Pt to discharge home with outpatient PT. No further case management d/c needs identified, pt has strong family support. Family to transport home. Date Signed: 05/06/2018 04:05 PM Electronically Signed By:Katerina Hayward RN Intervention Information
[2018-05-06 16:29] VITALS: BP 140/70
--- NOTE | 2018-05-06 19:11 | GDS ---
DISCHARGE DIAGNOSES: 1. Chest pain, suspect due to gastroesophageal reflux disease. 2. Coronary artery disease, nonobstructive, on cardiac catheterization. 3. Morbid obesity, body mass index 41. 4. Obstructive sleep apnea, on CPAP. 5. Obesity hypoventilation syndrome. 6. Diabetes. 7. Hypertension. HISTORY: The patient is a 57-year-old female who presented with chest pain. She had a high heart sc ore, so was admitted for observation and stress testing. Stress test showed positive inferior ischem ia, and she went to cardiac catheterization. She does have some nonobstructive coronary artery disea se, and stenting was not required. She should, however, be on medical management moving forward. He r chest pain history is most consistent with GERD, and she was started on a proton pump inhibitor. Incidentally noted during this hospitalization was significant hypoxemia. She has known obstructive sleep apnea and uses CPAP at night but not oxygen. CT angiogram of chest was negative for PE. I mikel davis she has obesity hypoventilation syndrome. She will discharge home with daytime oxygen and may n eed some oxygen with her CPAP at night as well. She will contact her sleep medicine physician for fu rther orders. DISCHARGE MEDICATIONS: Please see computerized record for full detailed list. New medications: 1. Aspirin 81 mg p.o. daily. 2. Lipitor 40 mg p.o. daily. 3. Protonix 40 mg p.o. daily. ADDITIONAL DISCHARGE INSTRUCTIONS: 1. Outpatient sleep study. Please contact your sleep physician to re-evaluate severe hypoxemia note d here at night. 2. Hold metformin for 2 days after IV contrast. 3. Greater than 30 minutes' time was spent arranging this discharge. Patient seen and examined by me on day of discharge. /[id number]/MODL
--- NOTE | 2018-05-08 08:37 | CPEKG ---
Test Reason : OPEN Blood Pressure : / mmHG Vent. Rate : 055 BPM Atrial Rate : 057 BPM P-R Int : 147 ms QRS Dur : 088 ms QT Int : 417 ms P-R-T Axes : -22 -05 -28 degrees QTc Int : 399 ms Sinus rhythm Left ventricular hypertrophy Nonspecific T abnrm, anterolateral leads Confirmed by Nixon Canas ([id number]) on 05/08/2018 8:36:31 AM Referred By: Confirmed By:Nixon Canas
== END 2018-05-06 19:05 | disposition home health service (06) | DRG 243 ==
LOC: F2W 05-03 → OBSVTOIN 05-03 17:22
PROVIDERS: ADMIT Family Medicine; ATTEND Family Medicine
PROC: B2151ZZ Fluoroscopy of Left Heart using Low Osmolar Contrast (ICD-10-PCS; principal; 2018-05-06)
PROC: 4A023N7 Measurement of Cardiac Sampling and Pressure, Left Heart, Percutaneous Approach (ICD-10-PCS; principal; 2018-05-06)
PROC: B2111ZZ Fluoroscopy of Multiple Coronary Arteries using Low Osmolar Contrast (ICD-10-PCS; principal; 2018-05-06)
DX: K21.9 Gastro-esophageal reflux disease without esophagitis (principal); E11.649 Type 2 diabetes mellitus with hypoglycemia without coma; E66.2 Morbid (severe) obesity with alveolar hypoventilation; I25.10 Atherosclerotic heart disease of native coronary artery without angina pectoris; I10 Essential (primary) hypertension; K44.9 Diaphragmatic hernia without obstruction or gangrene; Z68.41 Body mass index [BMI] 40.0-44.9, adult; Z23 Encounter for immunization; Z79.84 Long term (current) use of oral hypoglycemic drugs
CPT/HCPCS: 84484-PO; 96374; 97116-GP; 97161-GP; 97165-GO; 97530-GP; A9500; C1769; G0009; G0378; J1200; J1644; J1650; J1815; J2250; J2270; J2405; J2785; J2930; J3010; Q9967